=== PATIENT | female | born 1980 | race African-American/Black ===

== ENCOUNTER 2017-02-22 14:27 | Outpatient (CLI) | payer OTHER ==
--- NOTE | 2017-02-22 18:23 | L&D Discharge Summary ---
OB Discharge Summary Datetime Report Generated by CPN: 02/22/2017 18:23 DISCHARGE DIAGNOSIS Diagnosis/Symptoms: Reassuring Surveillance - Annotate Details Diagnoses/Symptoms Other: REACTIVE NST- AMA; NOT IN LABOR Number of Babies in Womb: 1 Parity: 2 DIET/ACTIVITY/RESTRICTIONS Diet: Regular Activity: Normal Activity TEACHING/INSTRUCTIONS/REFERRALS Instructions Understood: Patient Verbalized Understanding Referrals: None Educational Materials- Other: KICK COUNTS CARE NOTES GIVEN TO PT- QUESTIONS ANSWERED, DISCHARGE INFORMATION Discharged AMA: No Discharge Date/Time: 02/22/2017 15:14 Discharged To: Home Discharge Provider Name: LEONARDO Accompanied By: DAUGHTER Discharge Method: Ambulatory Condition: Stable FOLLOW UP INFORMATION Follow Up With: [facility] Follow Up On: As Scheduled Follow Up Phone Number: [facility] -
== END 2017-02-22 15:14 | disposition home or self-care (01) ==
LOC: LC 14:27
PROVIDERS: ATTEND Specialist
PROC: 4A1HXCZ Monitoring of Products of Conception, Cardiac Rate, External Approach (ICD-10-PCS; principal; 2017-02-22)
DX: O09.523 Supervision of elderly multigravida, third trimester (principal); Z3A.34 34 weeks gestation of pregnancy
CPT/HCPCS: 59025

== ENCOUNTER 2017-02-27 16:26 | Outpatient (CLI) | payer OTHER ==
--- NOTE | 2017-02-27 20:37 | L&D Discharge Summary ---
OB Discharge Summary Datetime Report Generated by CPN: 02/27/2017 20:37 DISCHARGE DIAGNOSIS Diagnosis/Symptoms: Reassuring Surveillance - Annotate Details Diagnoses/Symptoms Other: REACTIVE NST- AMA; NOT IN LABOR Gestation: 34.2 Number of Babies in Womb: 1 Parity: 1 DIET/ACTIVITY/RESTRICTIONS Diet: Regular Activity: Normal Activity TEACHING/INSTRUCTIONS/REFERRALS Instructions Understood: Patient Verbalized Understanding Referrals: None Educational Materials- Other: KICK COUNTS CARE NOTES GIVEN TO PT- QUESTIONS ANSWERED, DISCHARGE INFORMATION Discharged AMA: No Discharge Date/Time: 02/22/2017 15:14 Discharged To: Home Discharge Provider Name: DR ROJASAMIE Accompanied By: DAUGHTER Discharge Method: Ambulatory Condition: Stable FOLLOW UP INFORMATION Follow Up With: [facility] Follow Up On: As Scheduled Follow Up Phone Number: [facility] -
--- NOTE | 2017-03-01 22:49 | L&D Discharge Summary ---
OB Discharge Summary Datetime Report Generated by CPN: 03/01/2017 22:45 DISCHARGE DIAGNOSIS Diagnosis/Symptoms: Reassuring Surveillance - Annotate Details Diagnoses/Symptoms Other: REACTIVE NST- AMA; NOT IN LABOR Gestation: 35.0 Number of Babies in Womb: 1 Parity: 1 DIET/ACTIVITY/RESTRICTIONS Diet: Regular Activity: Normal Activity TEACHING/INSTRUCTIONS/REFERRALS Instructions Understood: Patient Verbalized Understanding Referrals: None Educational Materials- Other: KICK COUNTS CARE NOTES GIVEN TO PT- QUESTIONS ANSWERED, DISCHARGE INFORMATION Discharged AMA: No Discharge Date/Time: 02/22/2017 15:14 Discharged To: Home Discharge Provider Name: DR ROJASAMIE Accompanied By: DAUGHTER Discharge Method: Ambulatory Condition: Stable FOLLOW UP INFORMATION Follow Up With: [facility] Follow Up On: As Scheduled Follow Up Phone Number: [facility] -
--- NOTE | 2017-03-01 22:49 | L&D General Admission ---
General Admit Datetime Report Generated by CPN: 03/01/2017 22:45 INFORMATION Patient Age: 36 (02/22/2017 14:27:QS system process) EDC: 04/03/2017 00:00 (02/22/2017 14:47:Patience Lopez RN) : 2 (02/22/2017 14:47:Carissa Connolly RN) Para: 1 (02/22/2017 14:47:Carissa Connolly RN) Baby, Number in Womb: 1 (02/22/2017 14:47:Patience Lopez RN) CARE Height (in): 66 (02/27/2017 16:40:QS system process) Height (in): 66 (02/22/2017 14:56:QS system process) ALLERGIES Medication Allergies: No Known Allergies (02/27/2017) (02/27/2017 16:39:QS system process) Medication Allergies: No Known Allergies (02/22/2017) (02/22/2017 14:55:QS system process) DEMOGRAPHICS Address: [address] [place] [id number] (02/22/2017 14:27:QS system process) Zipcode: [address] (02/22/2017 14:27:QS system process) Home (02/22/2017 14:27:QS system process) SSN: [id number] (02/22/2017 14:27:QS system process) Next of Kin Name: ZA TEIXEIRA (02/22/2017 14:27:QS system process) Next of Kin (02/22/2017 14:27:QS system process) Next of Kin Relationship: SPO (02/22/2017 14:27:QS system process) Date of : 1980 (02/22/2017 14:27:QS system process) Marital Status: (02/22/2017 14:27:QS system process) Sex: Female (02/22/2017 14:27:QS system process) Race: (02/22/2017 14:27:QS system process) Ethnicity: Non- or (02/22/2017 14:27:QS system process) Faith: None (02/22/2017 14:27:QS system process)
--- NOTE | 2017-03-02 04:49 | L&D Discharge Summary ---
OB Discharge Summary Datetime Report Generated by CPN: 03/02/2017 04:46 DISCHARGE DIAGNOSIS Diagnosis/Symptoms: Reassuring Surveillance - Annotate Details Diagnoses/Symptoms Other: REACTIVE NST- AMA; NOT IN LABOR Gestation: 35.0 Number of Babies in Womb: 1 Parity: 1 DIET/ACTIVITY/RESTRICTIONS Diet: Regular Activity: Normal Activity TEACHING/INSTRUCTIONS/REFERRALS Instructions Understood: Patient Verbalized Understanding Referrals: None Educational Materials- Other: KICK COUNTS CARE NOTES GIVEN TO PT- QUESTIONS ANSWERED, DISCHARGE INFORMATION Discharged AMA: No Discharge Date/Time: 02/22/2017 15:14 Discharged To: Home Discharge Provider Name: DR ROJASAMIE Accompanied By: DAUGHTER Discharge Method: Ambulatory Condition: Stable FOLLOW UP INFORMATION Follow Up With: [facility] Follow Up On: As Scheduled Follow Up Phone Number: [facility] -
--- NOTE | 2017-03-02 04:49 | L&D General Admission ---
General Admit Datetime Report Generated by CPN: 03/02/2017 04:46 INFORMATION Patient Age: 36 (02/22/2017 14:27:QS system process) EDC: 04/03/2017 00:00 (02/22/2017 14:47:Patience Lopez RN) : 2 (02/22/2017 14:47:Carissa Connolly RN) Para: 1 (02/22/2017 14:47:Carissa Connolly RN) Baby, Number in Womb: 1 (02/22/2017 14:47:Patience Lopez RN) CARE Height (in): 66 (02/27/2017 16:40:QS system process) Height (in): 66 (02/22/2017 14:56:QS system process) ALLERGIES Medication Allergies: No Known Allergies (02/27/2017) (02/27/2017 16:39:QS system process) Medication Allergies: No Known Allergies (02/22/2017) (02/22/2017 14:55:QS system process) DEMOGRAPHICS Address: [address] [place] [id number] (02/22/2017 14:27:QS system process) Zipcode: [address] (02/22/2017 14:27:QS system process) Home (02/22/2017 14:27:QS system process) SSN: [id number] (02/22/2017 14:27:QS system process) Next of Kin Name: ZA TEIXEIRA (02/22/2017 14:27:QS system process) Next of Kin (02/22/2017 14:27:QS system process) Next of Kin Relationship: SPO (02/22/2017 14:27:QS system process) Date of : 1980 (02/22/2017 14:27:QS system process) Marital Status: (02/22/2017 14:27:QS system process) Sex: Female (02/22/2017 14:27:QS system process) Race: (02/22/2017 14:27:QS system process) Ethnicity: Non- or (02/22/2017 14:27:QS system process) Presybeterian: None (02/22/2017 14:27:QS system process)
--- NOTE | 2017-03-02 10:49 | L&D General Admission ---
General Admit Datetime Report Generated by CPN: 03/02/2017 10:45 INFORMATION Patient Age: 36 (02/22/2017 14:27:QS system process) EDC: 04/03/2017 00:00 (02/22/2017 14:47:Patience Lopez RN) : 2 (02/22/2017 14:47:Carissa Connolly RN) Para: 1 (02/22/2017 14:47:Carissa Connolly RN) Baby, Number in Womb: 1 (02/22/2017 14:47:Patience Lopez RN) CARE Height (in): 66 (02/27/2017 16:40:QS system process) Height (in): 66 (02/22/2017 14:56:QS system process) ALLERGIES Medication Allergies: No Known Allergies (02/27/2017) (02/27/2017 16:39:QS system process) Medication Allergies: No Known Allergies (02/22/2017) (02/22/2017 14:55:QS system process) DEMOGRAPHICS Address: [address] [place] [id number] (02/22/2017 14:27:QS system process) Zipcode: [address] (02/22/2017 14:27:QS system process) Home (02/22/2017 14:27:QS system process) SSN: [id number] (02/22/2017 14:27:QS system process) Next of Kin Name: ZA TEIXEIRA (02/22/2017 14:27:QS system process) Next of Kin (02/22/2017 14:27:QS system process) Next of Kin Relationship: SPO (02/22/2017 14:27:QS system process) Date of : 1980 (02/22/2017 14:27:QS system process) Marital Status: (02/22/2017 14:27:QS system process) Sex: Female (02/22/2017 14:27:QS system process) Race: (02/22/2017 14:27:QS system process) Ethnicity: Non- or (02/22/2017 14:27:QS system process) Synagogue: None (02/22/2017 14:27:QS system process)
--- NOTE | 2017-03-02 10:49 | L&D Discharge Summary ---
OB Discharge Summary Datetime Report Generated by CPN: 03/02/2017 10:45 DISCHARGE DIAGNOSIS Diagnosis/Symptoms: Reassuring Surveillance - Annotate Details Diagnoses/Symptoms Other: REACTIVE NST- AMA; NOT IN LABOR Gestation: 35.0 Number of Babies in Womb: 1 Parity: 1 DIET/ACTIVITY/RESTRICTIONS Diet: Regular Activity: Normal Activity TEACHING/INSTRUCTIONS/REFERRALS Instructions Understood: Patient Verbalized Understanding Referrals: None Educational Materials- Other: KICK COUNTS CARE NOTES GIVEN TO PT- QUESTIONS ANSWERED, DISCHARGE INFORMATION Discharged AMA: No Discharge Date/Time: 02/22/2017 15:14 Discharged To: Home Discharge Provider Name: DR ROJASAMIE Accompanied By: DAUGHTER Discharge Method: Ambulatory Condition: Stable FOLLOW UP INFORMATION Follow Up With: [facility] Follow Up On: As Scheduled Follow Up Phone Number: [facility] -
== END 2017-02-27 17:35 | disposition home or self-care (01) ==
LOC: LC 16:26
PROVIDERS: ATTEND Obstetrics & Gynecology
PROC: 4A1HXCZ Monitoring of Products of Conception, Cardiac Rate, External Approach (ICD-10-PCS; principal; 2017-02-27)
DX: O09.523 Supervision of elderly multigravida, third trimester (principal); Z3A.34 34 weeks gestation of pregnancy
CPT/HCPCS: 59025

== ENCOUNTER 2017-03-20 09:47 | Outpatient (CLI) | payer OTHER ==
--- NOTE | 2017-03-27 09:28 | Non Stress Test Report ---
Non Stress Test Datetime Report Generated by CPN: 03/27/2017 09:27 DEMOGRAPHIC EGA NST: 38.0 EGA NST: 35.0 EGA NST: 34.2 INDICATION Indication for Study: Ordered by Provider Indication for Study: Decreased Movement; Ordered by Provider; Other Indication for Study: Other Indication for Study (NST) Other: AMA Indication for Study (NST) Other: AMA Indication for Study (NST) Other: AMA VITAL SIGNS Temperature - NST: 97.9 Pulse - NST: 83 RESP - NST: 16 NBPSYS NST: 124 NBPDIA NST: 78 MONITORING Monitor Explained: Monitor Explained; Test Explained; Patient Verbalized Understanding Monitor Explained: Monitor Explained; Test Explained; Patient Verbalized Understanding Monitor Explained: Monitor Explained; Test Explained; Patient Verbalized Understanding Time on Monitor: 03/20/2017 09:53 Time on Monitor: 02/27/2017 16:35 Time on Monitor: 02/22/2017 14:45 Time off Monitor: 03/20/2017 11:00 Time off Monitor: 02/27/2017 17:31 Time off Monitor: 02/22/2017 15:09 NST Duration: 67 NST Duration: 56 NST Duration: 24 NST INTERVENTIONS NST Interventions: PO Hydration; Reposition Patient NST Interventions: PO Hydration NST Interventions: PO Hydration; Reposition Patient Physician Notified NST: H. Quintin, CNM Physician Notified NST: Quintin, CNM Physician Notified NST: DR VANESSAEN BABY A: [id number] BABY A Movement : Present Movement : Present Movement : Present Contraction Frequency : occasional Contraction Frequency : 0 Contraction Frequency : NONE FHR Baseline : 135 FHR Baseline : 135 FHR Baseline : 130 Accelerations : 15X15 Accelerations : 15X15 Accelerations : 15X15 Decelerations : None Decelerations : None Variability : Moderate 6-25bpm Variability : Moderate 6-25bpm Variability : Moderate 6-25bpm NST Review: Meets Criteria for Reactive NST NST Review: Meets Criteria for Reactive NST NST Review: Meets Criteria for Reactive NST NST Review and Verified By : Eduardo Tenorio RN NST Review and Verified By : Vignesh Soaers RN NST Results: Reactive NST Results: Reactive NST Results: Reactive NST REPORT Report Trigger: Send Report
== END 2017-03-20 11:10 | disposition home or self-care (01) ==
LOC: LC 09:47
PROVIDERS: ATTEND Student in an Organized Health Care Education/Training Program
PROC: 4A1HXCZ Monitoring of Products of Conception, Cardiac Rate, External Approach (ICD-10-PCS; principal; 2017-03-20)
DX: O36.8130 Decreased fetal movements, third trimester, not applicable or unspecified (principal); O09.523 Supervision of elderly multigravida, third trimester; Z3A.38 38 weeks gestation of pregnancy
CPT/HCPCS: 59025

== ENCOUNTER 2017-03-27 09:36 | Outpatient (CLI) | payer OTHER ==
--- NOTE | 2017-03-27 10:44 | Non Stress Test Report ---
Non Stress Test Datetime Report Generated by CPN: 03/27/2017 10:44 DEMOGRAPHIC EGA NST: 39.0 INDICATION Indication for Study: Ordered by Provider; Other Indication for Study (NST) Other: AMA MONITORING Monitor Explained: Monitor Explained; Test Explained; Patient Verbalized Understanding Time on Monitor: 03/27/2017 09:51 Time off Monitor: 03/27/2017 10:42 NST Duration: 51 NST INTERVENTIONS NST Interventions: PO Hydration; Reposition Patient BABY A Movement : Present Contraction Frequency : NONE Accelerations : 15X15 Variability : Moderate 6-25bpm NST Review: Meets Criteria for Reactive NST NST Review and Verified By : D Bellavance RNC NST Results: Reactive NST REPORT Report Trigger: Send Report
== END 2017-03-27 10:52 | disposition home or self-care (01) ==
LOC: LC 09:36
PROVIDERS: ATTEND Obstetrics & Gynecology
DX: Z34.83 Encounter for supervision of other normal pregnancy, third trimester (principal); Z3A.39 39 weeks gestation of pregnancy
CPT/HCPCS: 59025

== ENCOUNTER 2017-04-08 07:08 | Inpatient (IN) | payer OTHER ==
[2017-04-08] MEDS ORDERED: RINGERS SOLUTION,LACTATED 1,000 ML IV PRN (07:12)
[2017-04-08] MEDS ORDERED: PENICILLIN G-K 5 MILLION UNIT VIAL ONE ×2 (07:49→11:37)
[2017-04-08] MEDS ORDERED: OXYTOCIN/NORMAL SALINE 20 UNIT/1,000 ML RTUINJ ONE (07:49)
[2017-04-08 07:57] LABS: ABSOLUTE LYMPHOCYTES (AUTO) 1.6 10^3/uL (0.5-4.7); ABSOLUTE MONOCYTES (AUTO) 0.7 10^3/uL (0.1-1.4); ABSOLUTE NEUT (AUTO) 8.1 10^3/uL (1.7-8.2); BASOPHILS % (AUTO) 0.3 % (0-2); EOSINOPHILS % (AUTO) 0.3 % (0-6); HEMATOCRIT 37.5 % (36.0-47.0); HEMOGLOBIN 12.7 g/dL (12.0-15.5); HGB HCT DIFFERENCE 0.6; LYMPHOCYTES % (AUTO) 14.9 % (13-45); MEAN CORPUSCULAR HEMOGLOBIN 28.2 pg (27.0-33.4); MEAN CORPUSCULAR HGB CONC 33.8 g/dL (32.0-36.0); MEAN CORPUSCULAR VOLUME 83 fl (80-97); RED CELL DISTRIBUTION WIDTH 13.9 % (11.5-14.0); SEGMENTED NEUTROPHILS % (AUTO) 77.5 % (42-78); WHITE BLOOD COUNT 10.4 10^3/uL (4.0-10.5)
[2017-04-08 07:59] LABS: APPEARANCE,URINE CLOUDY; BILIRUBIN,URINE NEGATIVE (NEGATIVE); GLUCOSE, URINE NEGATIVE (NEGATIVE); KETONES,URINE 20 mg/dL (NEGATIVE); LEUKOCYTE ESTERASE,URINE MODERATE (NEGATIVE); NITRITE,URINE NEGATIVE (NEGATIVE); PROTEIN,URINE 30 mg/dL (NEGATIVE); URINE SPECIFIC GRAVITY 1.024; UROBILINOGEN,URINE NEGATIVE mg/dL (<2.0)
[2017-04-08] MEDS ORDERED: PENICILLIN G POTASSIUM 5,000,000 UNIT in DEXTROSE 5%-WATER 100 ML IV ONE (08:00)
[2017-04-08] MEDS: OXYTOCIN/NORMAL SALINE 1,000 ML IV PRN ×2 (08:15→15:29)
[2017-04-08 08:26] LABS: URINE BARBITURATES SCREEN NEGATIVE; URINE METHADONE SCREEN NEGATIVE; URINE OPIATES LOW NEGATIVE; URINE PHENCYCLIDINE SCREEN NEGATIVE
[2017-04-08] MEDS ORDERED: EPHEDRINE SULFATE INJ 50 MG/1 ML AMPULE ONE (08:37)
[2017-04-08] MEDS ORDERED: FENTANYL/BUPIVACAINE/NS/PF 200 MCG/100 ML RTUINJ EPI ONE (08:38)
[2017-04-08] MEDS ORDERED: BUPIVACAINE HCL 0.25 % INJ/PF (2.5 MG/1 ML) 30 ML VIAL ONE (08:38)
[2017-04-08] MEDS ORDERED: MISOPROSTOL 0.2 MG TABLET PR PRN (08:56)
[2017-04-08] MEDS ORDERED: LIDOCAINE 1% INJ-PF (10 MG/ML) 30 ML SDV INJ PRN (08:57)
[2017-04-08] MEDS ORDERED: BUPIVACAINE HCL 0.25 % INJ/PF (2.5 MG/1 ML) 30 ML VIAL INFIL ONE (08:58)
[2017-04-08] MEDS ORDERED: FENTANYL/BUPIVACAINE/NS/PF 100 ML EPI PRN (08:58)
[2017-04-08] MEDS ORDERED: EPHEDRINE SULFATE INJ 50 MG/1 ML AMPULE IV PRN (08:58)
[2017-04-08] MEDS ORDERED: PENICILLIN G POTASSIUM 2,500,000 UNIT in DEXTROSE 5%-WATER 50 ML IV SCH (12:00)
[2017-04-08] MEDS ORDERED: MISOPROSTOL 0.2 MG TABLET ONE (13:30)
[2017-04-08] MEDS ORDERED: MEASLES,MUMPS&RUBELLA VACC/PF 0.5 ML VIAL SUBCUT PRN (14:15)
[2017-04-08] MEDS ORDERED: DIBUCAINE 1% OINTMENT 28 GM TP PRN (14:15)
[2017-04-08] MEDS ORDERED: BENZOCAINE/MENTHOL AEROSOL SPRAY 56 ML TOP PRN (14:15)
[2017-04-08] MEDS ORDERED: DIPH/PERTUSS(ACELL)/TETANUS VAC/PF 0.5 ML SYR (>=10YO) IM PRN (14:15)
[2017-04-08] MEDS ORDERED: ZOLPIDEM TARTRATE 5 MG TABLET PO PRN (14:15)
[2017-04-08] MEDS ORDERED: OXYTOCIN/NORMAL SALINE 1,000 ML IV PRN (14:15)
[2017-04-08] MEDS ORDERED: ACETAMINOPHEN WITH CODEINE #3 TABLET PO PRN ×2 (14:15)
--- NOTE | 2017-04-08 15:05 | Delivery Summary ---
Del Sum A-C Datetime Report Generated by CPN: 04/08/2017 15:05 DELIVERY PERSONNEL DELIVERY PERSONNEL: [phone] Delivery Doctor:: Sanjuana Tenorio MD Anesthesiologist:: Christopher Unger MD Labor and Delivery Nurse:: Debo Pedroza RNit associate Nurse:: Carolina Manjarrez RN Material Manager/TELEGRAPH PLANT MAINTAINER: Thomas Motta, PERSONNEL TRAINING OFFICER MATERNAL INFORMATION Delivery Anesthesia: Epidural Medications After Delivery: Pitocin Bolus-Please Comment Meds After Delivery Comment: Pitocin 20 units in 1000 mL NS. Estimated Blood Loss (ml): 250 Maternal Complications: None LABOR SUMMARY EDC: 04/03/2017 00:00 No. Babies in Womb: 1 Attempted: No Labor Anesthesia: Epidural LABOR INFORMATION Reason for Induction: Post Dates; Other Reason for Induction- Other: AMA Onset of Labor: 04/08/2017 11:46 Complete Dilatation: 04/08/2017 13:36 Oxytocin: Induction Group B Beta Strep: POSITIVE Antibiotics # of Doses: 2 Antibiotics Time of Last Dose: 1137 Steroids Given: None Reason Steroids Not Administered: Not Applicable MEMBRANES Membranes Rupture Method: Spontaneous Rupture of Membranes: 04/08/2017 10:35 Length of Rupture (hr): 3.27 Amniotic Fluid Color: Clear Amniotic Fluid Amount: Small Amniotic Fluid Odor: Normal STAGES OF LABOR Stage 1 hr: 1 Stage 1 min: 50 Stage 2 hr: 0 Stage 2 min: 15 Stage 3 hr: 0 Stage 3 min: 4 Total Time in Labor hr: 2 Total Time in Labor min: 9 VAGINAL DELIVERY Episiotomy: None Laceration Extension: Second Degree Laceration Type: Perineal Laceration Repair: Yes Laceration Repair Note: 2-0 Chromic used to repair in normal fashion Sponge Count Correct: Yes Sharps Count Correct: Yes CSECTION DELIVERY Primary Indication: N/A Secondary Indication: N/A CSection Incidence: N/A Labor: N/A Elective: N/A CSection Incision: N/A BABY A INFORMATION Delivery Date/Time: 04/08/2017 13:51 Method of Delivery: Vaginal Born in Route : No : N/A Forceps: N/A Vacuum Extraction: N/A Shoulder Dystocia : No PRESENTATION/POSITION BABY A Presentation: Cephalic Cephalic Presentation: Vertex Vertex Position: Left Occipital Anterior Breech Presentation: N/A PLACENTA INFORMATION BABY A Placenta Delivery Time : 04/08/2017 13:55 Placenta Method of Delivery: Spontaneous Placenta Status: Delivered SCORES BABY A Heart Rate 1 min: >100 bpm Resp Effort 1 min: Good Cry Reflex Irritability 1 min: Cough or Sneeze or Pulls Away Muscle Tone 1 min: Active Motion Color 1 min: Body [place], Extremities Blue Resuscitation Effort 1 min: Tactile Stimulation SCORE 1 MIN: 9 Heart Rate 5 min: >100 bpm Resp Effort 5 min: Good Cry Reflex Irritability 5 min: Cough or Sneeze or Pulls Away Muscle Tone 5 min: Active Motion Color 5 min: Body [place], Extremities Blue Resuscitation Effort 5 min: Tactile Stimulation SCORE 5 MIN: 9 INFANT INFORMATION BABY A Gestational Age at Delivery: 40.5 Gestational Status: Full Term- 39- 40.6 Weeks Infant Outcome : Liveborn Condition : Stable Infant Sex: Male IDENTIFICATION BABY A Infant Verification Date/Time: 04/08/2017 14:03 ID Band Number: [id number] Mother's Name Verified: Yes Infant RN Verifying : Bam Roberson, RN Additional Verifying Personnel: AThor Manjarrez, RN WEIGHT/LENGTH BABY A Infant Birthweight (gm): 3030 Weight (lb): 6 Weight (oz): 11 Length (in): 19.50 Infant Length (cm): 49.53 CORD INFORMATION BABY A No. Cord Vessels: 3 Nuchal Cord : N/A Cord Blood Taken: Yes-For Eval (Mom's Blood Type - or O+) Infant Suction: Mouth; Nose ASSESSMENT BABY A Complications: None Physical Findings at Delivery: Within Normal Limits; Molding of the Head Infant Respirations: Appears Normal Skin to Skin: Yes Lift Team Technician/ALS Called : No Care By: Vignesh Manjarrez RN Transferred To: [facility] BABY B INFORMATION : N/A SIGNATURES Signature: with User ID: [email or web address]
[2017-04-08] MEDS: PENICILLIN G-K 5 MILLION UNIT VIAL IV SCH ×2 (15:28→15:29)
[2017-04-08] MEDS ORDERED: AMMONIA INHALANTS 10 AMPUL/BOX IH ONE (15:59)
--- NOTE | 2017-04-08 16:19 | Admission Physical ---
Datetime Report Generated by CPN: 04/08/2017 16:19 CURRENT ADMISSION Chief Complaint: Scheduled Induction of Labor Indication for Induction: Post Dates Admit Plan: Admit to Unit; Initiate Labor Augmentation Protocol ALLERGIES Medication Allergies: No Medication Allergies: coconut (04/08/2017) Medication Allergies: No Known Allergies (03/20/2017) Medication Allergies: No Known Allergies (02/27/2017) Medication Allergies: No Known Allergies (02/22/2017) Latex: No Latex Allergies Food Allergies: coconut Environmental Allergies: None OBSTETRICAL HISTORY EDC: 04/03/2017 00:00 : 2 Para: 1 Term: 1 : 0 SAB: 0 IAB: 0 Ectopic: 0 Livin Cesareans: 0 VBACs: 0 Multiple Births: 0 Gestational Diabetes: No Rh Sensitization: No Incompetent Cervix: No JUAN C: No Infertility: Yes ART Treatment: No Uterine Anomaly: No IUGR: No Hx Previous C/S: No Macrosomia: No Hx Loss/Stillborn: No PIH: No Hx : No Placenta Previa/Abruption: No Depression/PP Depression: No PTL/PROM: No Post Hemorrhage: No Current Procedures: Ultrasound Obstetrical History Comments: G1: 2006 babygirl 5 lbs 11 oz-short cervix was on p17 IOL @ 38 weeks, PP pre-E G2: current-AMA gbs positive SEE RECORDS Alcohol: No Marijuana : No Cocaine: No Other Illicit Drugs: No Cigarettes: Never Smoker. [id number] MEDICAL HISTORY Diabetes: No Blood Transfusion: No Pulmonary Disease (Asthma, TB): No Breast Disease: No Hypertension: No Assisted Living Associate Surgery: No Heart Disease: No Hosp/Surgery: Yes Autoimmune Disorder: No Anesthetic Complications: No Kidney Disease: No Abnormal Pap Smear: No Neuro/Epilepsy: No Psychiatric Disorders: No Other Medical Diseases: No Hepatitis/Liver Disease: No Significant Family History: No Varicosities/Phlebitis: No Trauma/Violence : No Thyroid Dysfunction: No Medical History Comments: sinus tach- no meds now, no problems x2 years, laprascopy, new lisbet, infertility x5 years, no treatment INFECTIOUS HISTORY Gonorrhea: No Genital Herpes: No Chlamydia: No Tuberculosis: No Syphilis: No Hepatitis: No HIV/AIDS Exposure: No Rash or Viral Illness: No HPV: No PHYSICAL EXAM General: Normal HEENT: Normal Neurologic: Normal Thyroid: Normal Heart: Normal Lungs: Normal Breast: Normal Back: Normal Abdomen: Normal Genitourinary Exam: Normal Extremities: Normal DTRs: Normal Pelvic Type: Adequate Vital Signs: Reviewed; Within Normal Limits VAGINAL EXAM Dilatation: 3 Effacement: 50 Station: -3 MEMBRANES Pooling: Negative Membranes: Intact FETUS A EGA: 40.5 Monitoring: External US FHR- Baseline: 130 Variability: Moderate 6-25bpm Accelerations: 10X10 Decelerations: None FHR Category: Category I Estimated Weight (gm): 3500 Presentation: Vertex PLANS FOR LABOR AND DELIVERY Labor and Delivery: None Pain Management: Epidural Feeding Preference: Breast Benefit of Breast Feed Discussed: Yes Circumcision: Yes INFORMED CONSENT Signature: with User ID: [email or web address]
[2017-04-08] MEDS: DOCUSATE SODIUM 100 MG CAPSULE PO SCH (17:56)
[2017-04-08] MEDS: FERROUS SULFATE 325 MG TABLET PO SCH (17:56)
[2017-04-08] MEDS: IBUPROFEN 800 MG TABLET PO SCH (21:06)
[2017-04-09] MEDS: IBUPROFEN 800 MG TABLET PO SCH ×3 (05:36→21:29)
[2017-04-09 07:35] LABS: HEMATOCRIT 29.2 % (36.0-47.0); HGB HCT DIFFERENCE -0.4; MEAN CORPUSCULAR HEMOGLOBIN 27.6 pg (27.0-33.4); MEAN CORPUSCULAR HGB CONC 32.7 g/dL (32.0-36.0); MEAN CORPUSCULAR VOLUME 84 fl (80-97); RED BLOOD COUNT 3.47 10^6/uL (3.72-5.28); RED CELL DISTRIBUTION WIDTH 13.9 % (11.5-14.0); WHITE BLOOD COUNT 11.3 10^3/uL (4.0-10.5)
[2017-04-09 07:42] LABS: HEMOGLOBIN 9.6 g/dL (12.0-15.5)
[2017-04-09] MEDS: PRENATAL VITAMIN W-O CA NO5/FE FUMARATE/FA CAPSULE PO SCH (09:11)
[2017-04-09] MEDS: DOCUSATE SODIUM 100 MG CAPSULE PO SCH ×2 (09:12→17:07)
[2017-04-09] MEDS: FERROUS SULFATE 325 MG TABLET PO SCH ×2 (09:12→17:07)
[2017-04-09] MEDS: SENNOSIDES/DOCUSATE 8.6-50 MG 1 EACH TABLET PO SCH (09:12)
--- NOTE | 2017-04-09 11:44 | PDOC PROGRESS REPORT ---
Subjective-OB Subjective: Post Delivery Day: 36 year old. Denies any needs at this time Physical Exam (OB) Vital Signs: Temp Pulse Resp BP Pulse Ox 98.1 F 86 16 115/68 99 04/09/17 08:05 04/09/17 08:05 04/09/17 08:05 04/09/17 08:05 04/09/17 08:05 Intake & Output 04/08/17 04/09/17 04/10/17 06:59 06:59 06:59 Intake Total 500 360 Balance 500 360 Weight 95 kg - Lochia Lochia Amount: Small 10-25 ml Lochia Color: Rubra/Red - Abdomen Description: Tender, Soft, Round Hernia Present: No Bowel Sounds: Normoactive Flatus Presence: Present Stool: No Fundal Description: Firm, Midline Fundal Height: u/u - u/2 Objective-Diagnostic Laboratory: 04/09/17 06:54 04/09/17 06:54 WBC 11.3 H RBC 3.47 L Hgb 9.6 L D Hct 29.2 L MCV 84 MCH 27.6 MCHC 32.7 RDW 13.9 Plt Count 176
[2017-04-10] MEDS: IBUPROFEN 800 MG TABLET PO SCH (06:06)
[2017-04-10 08:34] VITALS: BP 119/73
[2017-04-10] MEDS: FERROUS SULFATE 325 MG TABLET PO SCH (09:50)
[2017-04-10] MEDS: DOCUSATE SODIUM 100 MG CAPSULE PO SCH (09:50)
[2017-04-10] MEDS: PRENATAL VITAMIN W-O CA NO5/FE FUMARATE/FA CAPSULE PO SCH (09:50)
[2017-04-10] MEDS: SENNOSIDES/DOCUSATE 8.6-50 MG 1 EACH TABLET PO SCH (09:50)
--- NOTE | 2017-04-10 10:12 | PDOC DISCHARGE SUMMARY ---
Final Diagnosis Discharge Date: 04/10/17 - Final Diagnosis (1) AMA (advanced maternal age) multigravida 35+ Is this a current diagnosis for this admission?: Yes (2) Delivery normal Is this a current diagnosis for this admission?: Yes (3) Positive GBS test Is this a current diagnosis for this admission?: Yes Discharge Data - Discharge Medication Home Medications: Vit/Iron Fumarate/FA [ Tablet] 1 tab PO DAILY 02/22/17 Ranitidine HCl [Zantac 150 mg Tablet] 150 mg PO BID 04/08/17 Docusate Sodium [Colace 100 mg Capsule] 100 mg PO BID #60 capsule 04/10/17 Ferrous Sulfate [Feosol 325 mg Tablet] 325 mg PO BID #60 tablet 04/10/17 Ibuprofen [Motrin 800 mg Tablet] 800 mg PO Q8 #60 tablet 04/10/17 Gestational Age: 40.5 Reason(s) for Admission: Induction of Labor, Advanced Maternal Age, Group B Strep Positive Procedures: NST Intrapartum Procedure(s): Spontaneous Vaginal Delivery Complication(s): Laceration-Perineal Laceration-Degree: 2nd - Data Baby 1 Male at 1 minute: 9 at 5 minutes: 9 Weight: 3030 kg Home with Mother: Yes Complications: No - Diagnosis Test Laboratory: Temp Pulse Resp BP Pulse Ox 97.9 F 79 18 119/73 100 04/10/17 08:19 04/10/17 08:19 04/10/17 08:19 04/10/17 08:19 04/10/17 08:19 04/08/17 04/08/17 04/09/17 07:22 07:35 06:54 RBC 4.50 3.47 L Hgb 12.7 9.6 L D Hct 37.5 29.2 L Urine Opiates Screen NEGATIVE - Discharge information/Instructions Discharge Activity: Activity As Tolerated, Pelvic Rest, No tub bath Discharge Diet: Regular Disposition: HOME, SELF-CARE Follow up with: [facility] in: 4, Weeks
== END 2017-04-10 11:37 | disposition home or self-care (01) | DRG 775 ==
LOC: LR 07:08 → 2S 16:17
PROVIDERS: ADMIT Obstetrics & Gynecology; ATTEND Obstetrics & Gynecology
PROC: 10E0XZZ Delivery of Products of Conception, External Approach (ICD-10-PCS; principal; 2017-04-08)
PROC: 0KQM0ZZ Repair Perineum Muscle, Open Approach (ICD-10-PCS; 2017-04-08)
PROC: 4A1HXFZ Monitoring of Products of Conception, Cardiac Rhythm, External Approach (ICD-10-PCS; 2017-04-08)
DX: O48.0 Post-term pregnancy (principal); O70.1 Second degree perineal laceration during delivery; O99.824 Streptococcus B carrier state complicating childbirth; Z91.018 Allergy to other foods; Z3A.40 40 weeks gestation of pregnancy; Z37.0 Single live birth
CPT/HCPCS: 36415; 80307; 81005; 85025; 85027; 86592; 86850; 86900; 86901; 94760; J2540; J2590; J3490

== ENCOUNTER 2018-01-05 15:39 | Emergency (ER) | payer OTHER ==
--- NOTE | 2018-01-05 16:31 | ER Document Report ---
ED Medical Screen (RME) - General Chief Complaint: Chest Pain Stated Complaint: CHEST PAIN Time Seen by Provider: 01/05/18 16:26 Mode of Arrival: Ambulatory Information source: Patient Notes: This is a 37-year-old female with no medical problems who presents to the emergency room with palpitations and a sensation of shortness of breath on exertion. Patient denies any chest pain. Patient denies any recent illnesses. Patient denies any fever. patient denies any calf pain. TRAVEL OUTSIDE OF THE [place] IN LAST 30 DAYS: No - Related Data Allergies/Adverse Reactions: coconut Allergy (Verified 01/05/18 15:41) Past Medical History - Social History Chew tobacco use (# tins/day): No Frequency of alcohol use: None Drug Abuse: None Renal/ Medical History: Denies: Hx Peritoneal Dialysis Past Surgical History: Reports: Hx Oral Surgery - Immunizations Hx Diphtheria, Pertussis, Tetanus Vaccination: Yes Physical Exam - Vital signs Vitals: Temp Pulse Resp BP Pulse Ox 98.8 F 93 16 164/96 H 100 01/05/18 16:00 01/05/18 16:00 01/05/18 16:00 01/05/18 16:00 01/05/18 16:00 Course - Vital Signs Vital signs: Temp Pulse Resp BP Pulse Ox 98.8 F 93 16 164/96 H 100 01/05/18 16:00 01/05/18 16:00 01/05/18 16:00 01/05/18 16:00 01/05/18 16:00
[2018-01-05 16:50] LABS: ABSOLUTE BASOPHILS # (AUTO) 0.1 10^3/uL (0.0-0.2); ABSOLUTE EOSINOPHILS # (AUTO) 0.1 10^3/uL (0.0-0.6); ABSOLUTE LYMPHOCYTES (AUTO) 2.4 10^3/uL (0.5-4.7); ABSOLUTE MONOCYTES (AUTO) 0.7 10^3/uL (0.1-1.4); BASOPHILS % (AUTO) 0.7 % (0-2); EOSINOPHILS % (AUTO) 1.6 % (0-6); HEMATOCRIT 40.4 % (36.0-47.0); HEMOGLOBIN 13.9 g/dL (12.0-15.5); LYMPHOCYTES % (AUTO) 25.4 % (13-45); MEAN CORPUSCULAR HEMOGLOBIN 29.2 pg (27.0-33.4); MEAN CORPUSCULAR HGB CONC 34.5 g/dL (32.0-36.0); MEAN CORPUSCULAR VOLUME 85 fl (80-97); MONOCYTES % (AUTO) 7.6 % (3-13); PLATELET COUNT 324 10^3/uL (150-450); RED BLOOD COUNT 4.77 10^6/uL (3.72-5.28); RED CELL DISTRIBUTION WIDTH 13.7 % (11.5-14.0); SEGMENTED NEUTROPHILS % (AUTO) 64.7 % (42-78); TOTAL CELLS COUNTED % (AUTO) 100 %; WHITE BLOOD COUNT 9.3 10^3/uL (4.0-10.5)
--- NOTE | 2018-01-05 17:44 | RADIOLOGY REPORT (SQ) ---
EXAM DESCRIPTION: CHEST PA/LAT COMPLETED DATE/TIME: 01/05/2018 5:35 pm REASON FOR STUDY: chest pain COMPARISON: None. EXAM PARAMETERS: NUMBER OF VIEWS: two views TECHNIQUE: Digital Frontal and Lateral radiographic views of the chest acquired. RADIATION DOSE: NA LIMITATIONS: none FINDINGS: LUNGS AND PLEURA: No opacities, masses or pneumothorax. No pleural effusion. MEDIASTINUM AND HILAR STRUCTURES: No masses or contour abnormalities. HEART AND VASCULAR STRUCTURES: Heart normal size. No evidence for failure. BONES: No acute findings. HARDWARE: None in the chest. OTHER: No other significant finding. IMPRESSION: NO SIGNIFICANT RADIOGRAPHIC FINDING IN THE CHEST. TECHNICAL DOCUMENTATION: JOB ID: [id number] [employer]- All Rights Reserved
[2018-01-05 18:40] LABS: CREATINE KINASE MB 0.25 ng/mL (<4.55)
[2018-01-05 18:43] LABS: TROPONIN I < 0.012 ng/mL
[2018-01-05 18:46] LABS: FREE T3 3.43 pg/mL (2.77-5.27); FREE T4 (FREE THYROXINE) 0.92 ng/dL (0.78-2.19)
[2018-01-05 19:00] LABS: THYROID STIMULATING HORMONE 1.98 uIU/mL (0.47-4.68)
[2018-01-05 19:02] LABS: ALANINE AMINOTRANSFERASE 10 U/L (9-52); ALBUMIN 4.9 g/dL (3.5-5.0); ALKALINE PHOSPHATASE 97 U/L (38-126); ANION GAP 15 (5-19); ASPARTATE AMINO TRANSFERASE 15 U/L (14-36); BILIRUBIN,DIRECT 0.2 mg/dL (0.0-0.4); BILIRUBIN,TOTAL 0.3 mg/dL (0.2-1.3); BLOOD UREA NITROGEN 13 mg/dL (7-20); CALCIUM 10.3 mg/dL (8.4-10.2); CARBON DIOXIDE 23 mmol/L (22-30); CHLORIDE 106 mmol/L (98-107); CREATINE KINASE 75 U/L (30-135); GLUCOSE 95 mg/dL (75-110); POTASSIUM 4.3 mmol/L (3.6-5.0); SODIUM 144.1 mmol/L (137-145)
--- NOTE | 2018-01-05 20:57 | ER Document Report ---
ED General - General Chief Complaint: Chest Pain Stated Complaint: CHEST PAIN Time Seen by Provider: 01/05/18 16:26 Mode of Arrival: Ambulatory Notes: Patient is a 37-year-old female with a past medical history of obesity approximately 24 hours of chest discomfort and palpitations. Patient describes her chest pain as a stabbing, diffuse chest wall discomfort. Symptoms have been unchanged since onset. Nothing improves or worsens that pain. She notes associated palpitations but denies any associated shortness of breath, nausea, vomiting or diaphoresis. She denies a history of similar symptoms in the past. She has no known history of coronary artery disease, aortic pathology, connective tissue disorders, DVT or pulmonary embolus. She has never received chemotherapy and does not take any form of estrogen. She has not seen her primary care doctor regarding today's concerns. No chest wall trauma. TRAVEL OUTSIDE OF THE [place] IN LAST 30 DAYS: No - Related Data Allergies/Adverse Reactions: coconut Allergy (Verified 01/05/18 15:41) Past Medical History - General Information source: Patient - Social History Smoking Status: Never Smoker Chew tobacco use (# tins/day): No Frequency of alcohol use: None Drug Abuse: None Lives with: Family Family History: Reviewed & Not Pertinent Patient has suicidal ideation: No Patient has homicidal ideation: No Renal/ Medical History: Denies: Hx Peritoneal Dialysis Past Surgical History: Reports: Hx Oral Surgery - Immunizations Hx Diphtheria, Pertussis, Tetanus Vaccination: Yes Review of Systems - Review of Systems Notes: Constitutional: Negative for fever. HENT: Negative for sore throat. Eyes: Negative for visual changes. Cardiovascular: Positive for chest pain. Respiratory: Negative for shortness of breath. Gastrointestinal: Negative for abdominal pain, vomiting or diarrhea. Genitourinary: Negative for dysuria. Musculoskeletal: Negative for back pain. Skin: Negative for rash. Neurological: Negative for headaches, weakness or numbness. 10 point ROS negative except as marked above and in HPI. Physical Exam - Vital signs Vitals: Temp Pulse Resp BP Pulse Ox 98.8 F 93 16 164/96 H 100 01/05/18 16:00 01/05/18 16:00 01/05/18 16:00 01/05/18 16:00 01/05/18 16:00 Interpretation: Hypertensive Notes: PHYSICAL EXAMINATION: GENERAL: Well-appearing, well-nourished and in no acute distress. HEAD: Atraumatic, normocephalic. EYES: Pupils equal round and reactive to light, extraocular movements intact, sclera anicteric, conjunctiva are normal. ENT: nares patent, oropharynx clear without exudates. Moist mucous membranes. NECK: Normal range of motion, supple without lymphadenopathy LUNGS: Breath sounds clear to auscultation bilaterally and equal. No wheezes rales or rhonchi. HEART: Regular rate and rhythm without murmurs ABDOMEN: Soft, nontender, normoactive bowel sounds. No guarding, no rebound. No masses appreciated. EXTREMITIES: Normal range of motion, no pitting or edema. No cyanosis. NEUROLOGICAL: No focal neurological deficits. Moves all extremities spontaneously and on command. PSYCH: Normal mood, normal affect. SKIN: Warm, Dry, normal turgor, no rashes or lesions noted. Course - Re-evaluation Re-evalutation: 01/05/18 20:55 Presentation of chest pain in an otherwise well appearing patient. Low clinical suspicion for ACS given clinical history, exam, EKG without ST elevations or depressions, and negative initial troponin. HEART score less than or equal to 3. PE also seems unlikely given clinical history, absence of tachycardia or dyspnea. Patient is PERC criteria negative. Although patient was tachycardic on EKG she has not had any tachycardia for any remaining. Of her visit including at time of triage, and time of my assessment. Heart rate at time of my assessment is 83. CXR without evidence of pneumothorax or pneumonia. No widened mediastinum. Aortic dissection also seems unlikely given history, symmetric pulses, CXR, and vitals. Patient has been having symptoms continuously since waking up making serial troponins unnecessary as her pain is been present for greater than 8 hours prior to arrival. HEART Score: History:0 EC Age:0 Risk Factors:1 Troponin:0 Total: 1 Chest pain in a patient without evidence of cardiac or other serious etiology on workup today. I discussed with patient that, based on their age, risk factors and emergency department testing today, the likelihood that their symptoms are related to a heart attack is very low (estimated risk of heart attack or over the next 30 days of less than 1%). The patient demonstrates decision making capacity and has verbalized an understanding of these risks to me. Based on this, the patient has chosen to follow-up as an outpatient. Usual chest pain return precautions reviewed. The patient states understanding and agreement with this plan. - Vital Signs Vital signs: Temp Pulse Resp BP Pulse Ox 98.8 F 80 16 136/87 H 99 01/05/18 16:00 01/05/18 21:08 01/05/18 21:08 01/05/18 21:08 01/05/18 21:08 - Laboratory Result Diagrams: 01/05/18 16:39 01/05/18 17:43 Laboratory results interpreted by me: 01/05/18 17:43 Calcium 10.3 H - Diagnostic Test Radiology reviewed: Image reviewed, Reports reviewed Radiology results interpreted by me: 01/05/18 20:56 Chest x-ray: No acute infiltrate or pneumothorax - EKG Interpretation by Me Additional EKG results interpreted by me: 01/05/18 20:57 Sinus tachycardia. Rate 116. No ST elevations or depressions. QTC is 456. Discharge - Discharge Clinical Impression: Palpitations Chest pain Qualifiers: Chest pain type: unspecified Qualified Code(s): R07.9 - Chest pain, unspecified Condition: Good Disposition: HOME, SELF-CARE Additional Instructions: You were seen today for chest pain. The exact cause of your pain is unclear. However, based on your cardiac enzyme testing, chest x-ray, and EKG it does not appear that it is from an immediately life-threatening cause at this time. Although your testing here is normal is critical that you follow-up with your primary care physician for continued evaluation of this chest pain and possible stress testing. I recommended you see your physician within the next 24-48 hours to be evaluated for consideration of a stress test. Please return to emergency department immediately if you have worsening of your chest pain, shortness of breath, vomiting, become unable to exert yourself due to pain or difficulty breathing, you pass out, or have any pain that radiates into your arms, jaw, or back. Please also return if you have any additional symptoms that are concerning to you.
[2018-01-05 21:10] VITALS: BP 136/87
--- NOTE | 2018-01-06 09:50 | EKG REPORT ---
SEVERITY:- OTHERWISE NORMAL ECG - SINUS TACHYCARDIA : Confirmed by: Librado Sierra 06-Jan-2018 09:49:27
== END 2018-01-05 20:50 | disposition home or self-care (01) ==
LOC: ER 15:39
DX: R07.9 Chest pain, unspecified (principal); R00.2 Palpitations; E66.9 Obesity, unspecified
CPT/HCPCS: 36415; 71046; 80053; 82550; 82553; 84439; 84443; 84481; 84484; 84702; 85025; 93005; 93010; 99285